=== PATIENT | female | born 1930 | race Caucasian/White ===

== ENCOUNTER 2017-04-04 09:45 | Inpatient (IN) | payer OTHER ==
[~2017-04-04] VITALS: Ht 160 cm; Wt 68.9 kg
[~2017-04-04 09:45] MED LIST: ALPHA LIPOIC A200 M1 PO; ASPIR 8181 MG PO; ASPIRIN EC81 M1; AVAPRO 150 MG150 M1; AVAPRO 150 MG150 M1 PO; BISACODYL SUPP10 MG RE; CLARITIN10 MG PO; COLACE100 MG PO; CYCLOBENZAPRINE10 MG PO; FLOMAX0.4 MG PO; HALCION0.25 MG; HALCION0.25 MG PO; HUMALOG100 UNIT/1; HUMALOG100 UNIT/2 SUBQ; IBUPROFEN 200200 M1 PO; IBUPROFEN 600600 M1 PO; KEFLEX500 MG PO; LIDODERM 5%1 PATC1 TOP; LORATIDINE 10 M10 M1; MELATONIN3 MG PO; MIRALAX255 GM PO; NEURONTIN 300300 M1; NEURONTIN 300300 M1 PO; NEXIUM40 MG; OMEPRAZOLE20 M2 PO; PERCOCET 5-3251 EACH PO; PREDNISONE 20 M20 MG PO; VESICARE10 M1 PO
[2017-04-04 09:47] VITALS: BP 119/47
[2017-04-04] MEDS ORDERED: LORATIDINE 10 M10 M1 PO (09:57)
[2017-04-04] MEDS ORDERED: UNICOMPLEX M TA1 TA1 PO (09:57)
[2017-04-04 10:10] LABS: ABSOLUTE EOSINOPHILS 0.4 thou/uL (0.0-0.7); ABSOLUTE LYMPHOCYTES 0.7 thou/uL (0.8-5.3); ABSOLUTE MONOCYTES 0.8 thou/uL (0.0-1.2); ABSOLUTE NEUTROPHILS 4.2 thou/uL (1.6-8.1); BASOPHILS 0.3 %; EOSINOPHILS 6.2 %; HEMATOCRIT 25.9 % (37.0-47.0); HEMOGLOBIN 8.3 gm/dL (12.0-15.0); LYMPHOCYTES 12.1 %; MCH 23.8 pg (26.0-34.0); MCHC 32.1 g/dL (28.0-37.0); MCV 74.2 fL (80.0-100.0); MONOCYTES 13.7 %; MPV 7.7 fl. (7.2-11.1); NUCLEATED RBCS 0 /100WBC; PLATELET COUNT* 270 thou/uL (150-400); POLYS 67.7 %; RBC 3.49 mil/uL (4.20-5.00); RDW-CV 16.5 % (10.5-14.5); WBC 6.2 thou/uL (4.0-11.0)
[2017-04-04 10:18] LABS: ANION GAP 6 mmol/L (7-16); BUN 19 mg/dL (7-18); CALCIUM 8.1 mg/dL (8.5-10.1); CHLORIDE 102 mmol/L (98-107); CO2 30 mmol/L (21-32); CREATININE 0.9 mg/dL (0.6-1.3); GLUCOSE 50 mg/dL (70-99); POTASSIUM 3.8 mmol/L (3.5-5.1); SODIUM 138 mmol/L (136-145)
[2017-04-04 10:25] LABS: ALBUMIN 3.1 g/dL (3.4-5.0); ALKALINE PHOSPHATASE 97 U/L (46-116); SGOT 16 U/L (15-37); SGPT 18 U/L (30-65); TOTAL BILIRUBIN 0.1 mg/dL (<0.1-1.0); TOTAL PROTEIN 6.1 g/dL (6.4-8.2); TROPONIN-I LEVEL 0.07 ng/mL (<0.06)
[2017-04-04 12:06] LABS: URINE BILIRUBIN NEGATIVE (Negative); URINE BLOOD TRACE (Negative); URINE CLARITY CLEAR; URINE COLOR YELLOW; URINE GLUCOSE-RANDOM NEGATIVE (Negative); URINE KETONES NEGATIVE (Negative); URINE LEUKOCYTES-REFLEX NEGATIVE (Negative); URINE NITRITE-REFLEX NEGATIVE (Negative); URINE PROTEIN NEGATIVE (Negative); URINE SPECIFIC GRAVITY 1.015 (1.005-1.030); URINE UROBILINOGEN 0.2 E.U./dl (0.2-1.0)
[2017-04-04 12:13] LABS: AMP/METHAMP Negative (Negative); BARBITURATES Negative (Negative); BENZODIAZEPINES POSITIVE (Negative); COCAINE Negative (Negative); METHADONE Negative (Negative); OPIATES Negative (Negative); PCP Negative (Negative); THC Negative (Negative)
[2017-04-04 13:50] VITALS: BP 136/84
[2017-04-04 14:30] VITALS: BP 115/51
[2017-04-04 14:31] VITALS: BP 96/38
[2017-04-04 14:32] VITALS: BP 80/55
[2017-04-04 15:17] LABS: % SATURATION 4 % (20-39); IRON 17 ug/dL (50-175)
--- NOTE | 2017-04-04 15:28 | EKG ---
[place] [address] ELECTROCARDIOGRAM REPORT Name: ALEXX PENA Room: [address] M.R.#: [id number] Admission: 04/04/17 Attend Phys: Tevin Howard, Discharge: Date of : 32 Report #: [id number] THIS REPORT FOR: //name// [facility] ED Test Date: 2017-04-04 Test Time: 09:55:23 Pat Name: ALEXX PENA Department: Room: [address] Gender: F Supervisor [employer] Education: : 1930 Requested By: Tevin Howard Order Number: [id number] Reading MD: Felipe Porras Measurements Intervals [employer] Rate: 62 P: 54 MI: 159 QRS: 47 QRSD: 106 T: 27 QT: 433 QTc: 440 Interpretive Statements Sinus rhythm Atrial premature complexes Baseline wander in lead(s) V6 Compared to ECG 02/24/2016 12:13:03 Short MI interval no longer present ST (T wave) deviation no longer present Electronically Signed On 04-04-2017 15:28:07 FACILITY PRACTICE SPECIALIST by Felipe Porras [email or web address] <ELECTRONICALLY SIGNED> By: Felipe Porras MD, FAC 04/04/17 1528 0955 [id number] Felipe Porras MD, [facility] /EPI
--- NOTE | 2017-04-04 15:30 | EKG ---
[place] [address] ELECTROCARDIOGRAM REPORT Name: ALEXX PENA Room: [address] M.R.#: [id number] Admission: 04/04/17 Attend Phys: Tevin Howard, Discharge: Date of : 32 Report #: [id number] THIS REPORT FOR: //name// [facility] ED Test Date: 2017-04-04 Test Time: 13:33:01 Pat Name: ALEXX PENA Department: Room: [facility] Gender: F Weather Anchor: ELSY : 1930 Requested By: Eda Arnett Order Number: [id number] MD: Felipe Porras Measurements Intervals [place] Rate: 73 P: 78 SD: 146 QRS: 67 QRSD: 97 T: 30 QT: 414 QTc: 457 Interpretive Statements Sinus rhythm Probable left ventricular hypertrophy Compared to ECG 02/24/2016 12:13:03 Atrial premature complex(es) no longer present Short SD interval no longer present ST (T wave) deviation no longer present Electronically Signed On 04-04-2017 15:29:57 APARTMENT COMMUNITY ASSISTANT MANAGER by Felipe Porras [email or web address] <ELECTRONICALLY SIGNED> By: Felipe Porras MD, [facility] 04/04/17 1529 1333 1333 Felipe Porras MD, [facility] /EPI
--- NOTE | 2017-04-04 19:08 | NUR ---
RENETTA RESTING IN BED. PARKERNET ADVISED THAT SHE IS NOT TO GET UP WITHOUT ASSISTANCE AND THAT SHE SHOULD PROBABLY REMAIN BEDREST FOR HTE EVENING. ORTHOSTATIC BLOOD PRESSURES OBTAINED AND DOCUMENTED WITH A ORTHOSTATIC HYPOTENSION PRESENT AT TIME OF ASSESSMENT. HOURLY ROUNDING COMPLETED FOR PATIENT SAFETY AND RENETTA IN NOAPPARNET SIGNS OF DISTRESS AT THIS TIME.
[2017-04-04 20:00] VITALS: BP 109/47
[2017-04-05] VITALS (7 sets, daily range): BP systolic 86–178; BP diastolic 27–69
[2017-04-05 05:07] LABS: GLYCOHEMOGLOBIN (HGB A1C) 7.7 % (4.8-5.6)
[2017-04-05 05:09] LABS: HEMATOCRIT 24.9 % (37.0-47.0); HEMOGLOBIN 8.3 gm/dL (12.0-15.0); MCH 24.2 pg (26.0-34.0); MCHC 33.3 g/dL (28.0-37.0); MCV 72.8 fL (80.0-100.0); MPV 9.1 fl. (7.2-11.1); RBC 3.43 mil/uL (4.20-5.00); RDW-CV 16.7 % (10.5-14.5); WBC 10.3 thou/uL (4.0-11.0)
[2017-04-05 05:44] LABS: ALBUMIN 3.1 g/dL (3.4-5.0); CALCIUM 8.6 mg/dL (8.5-10.1); CREATININE 1.1 mg/dL (0.6-1.3); MAGNESIUM 2.1 mg/dL (1.8-2.4); TOTAL BILIRUBIN 0.4 mg/dL (<0.1-1.0)
[2017-04-05 05:53] LABS: POTASSIUM 5.3 mmol/L (3.5-5.1)
[2017-04-05 05:56] LABS: TROPONIN-I LEVEL 1.51 ng/mL (<0.06)
--- NOTE | 2017-04-05 06:11 | NUR ---
ASSUMED CARE OF PT AT 1930, PT AAOX4, NURSING ASSESSMENT COMPLETED AT START OF SHIFT, PT ON TELE MONITOR TRACING SINUS RHYTHM WITH OCCASIONAL PVCS. PT'S BLOOD SUGAR AT 0000 WAS 30, PT GIVEN D50. SEE EMAR FOR DOCUMENTATION. BLOOD SUGAR RECHECKED AT 0030 WAS 177. PT CONTINUED TO TREND UP. AT 0400 PT BLOOD SUGAR WAS 412. DR. PAL NOTIFIED AT 0430, NEW ORDERS RECEIVED TO CONTINUE ACCU CHECKS Q2H X6, IVF. NEW ORDERS RECEIVED FOR ZOFRAN. ADMINISTERED X1 THIS SHIFT FOR EPISODES OF EMESIS X2. AT 0600, GLUCOMETER READ "HIGH ABOVE 500". STAT LAB ORDERS FOR GLUCOSE PLACED. AWAITING LAB RESULTS.
--- NOTE | 2017-04-05 07:59 | NUR ---
STAT LAB GLUCOSE RESULTS RECEIVED AT 0643. PT SERUM GLUCOSE 545. DR. PAL NOTIFIED, NEW ORDERS RECEIVED AND ADMINISTERED. SEE EMAR FOR DOCUMENTATION. PT CONTINUES TO HAVE SOFT BLOOD PRESSURES. DR. PAL NOTIFIED OF LOW BLOOD PRESSURES. PT CONTINUES ON IVF ORDERED BY PROVIDER. HOURLY ROUNDING COMPLETED, Q2H REPOSITIONING COMPLETED, CONTINUES ON TELE MONITOR TRACING SINUS RHYTHM WITH OCCASIONAL PVCS. CALL LIGHT REMAINS WITHIN REACH.
--- NOTE | 2017-04-05 11:47 | 2DMMODE ---
[place] [address] 2 D/M-MODE ECHOCARDIOGRAM Name: ALEXX PENA Room: [address] Colton Hernandez#: [id number] Admission: 04/04/17 Attend Phys: Tevin Woods Discharge: Date of : 32 Date of Service: 04/05/17 1147 Report #: [id number] THIS REPORT FOR: //name// APPROVED REPORT Study performed: 04/04/2017 17:37:24 EXAM: Comprehensive 2D, Doppler, and color-flow Echocardiogram Patient Location: In-Patient Room #: 203 Status: routine BSA: 1.69 HR: 88 bpm BP: 136/84 mmHg Rhythm: NSR Other Information Study Quality: Good Indications Elevated Troponin 2D Dimensions LVEF(%): 79.68 (>50%) IVSd: 9.74 (7-11mm) LVOT Diam: 20.04 (18-24mm) LVDd: 40.84 mm PWd: 7.38 (7-11mm) Ascending Ao: 29.88 (22-36mm) LVDs: 21.31 (25-40mm) Aortic Root: 29.71 mm Juan's LVEF: 79.68 % Volumes Left Atrial Volume (Systole) LA ESV Index: 35.90 mL/m2 Aortic Valve AoV Peak Duong.: 1.77 m/s AO Peak Gr.: 12.53 mmHg LVOT Max P.31 mmHg AO Mean Gr.: 6.98 mmHg LVOT Mean P.80 mmHg LVOT Max V: 1.68 m/s AO V2 VTI: 36.30 cm LVOT Mean V: 1.11 m/s KOSTAS (VTI): 3.37 cm2 LVOT V1 VTI: 38.71 cm Mitral Valve E/A Ratio: 1.13 [place] [address] 2 D/M-MODE ECHOCARDIOGRAM Name: ALEXX PENA Room: [address] Colton Hernandez#: [id number] Admission: 04/04/17 Attend Phys: Tevin Woods Discharge: Date of : 32 Date of Service: 04/05/17 1147 Report #: [id number] MV Decel. Time: 219.63 ms MV E Max Duong.: 1.60 m/s MV PHT: 63.69 ms MVA (PHT): 3.45 cm2 TDI E/Lateral E': 14.55 E/Medial E': 20.00 Medial E' Duong.: 0.08 m/s Lateral E' Duong.: 0.11 m/s Pulmonary Valve PV Peak Duong.: 1.23 m/s PV Peak Gr.: 6.03 mmHg Tricuspid Valve TR Peak Gr.: 42.31 mmHg RVSP: 47.00 mmHg Left Ventricle The left ventricle is normal size. There is normal LV segmental wall motion. There is normal left ventricular wall thickness. Left ventricular systolic function is normal. The left ventricular ejection fraction is within the normal range. LVEF is 65-70%. The left ventricular diastolic function is normal. Right Ventricle The right ventricle is normal size. The right ventricular systolic function is normal. Atria Left atrium is mildly dilated. The right atrium size is normal. Aortic Valve The aortic valve is normal in structure. No aortic regurgitation is present. There is no aortic valvular stenosis. Mitral Valve There is mitral annular calcification. Mild mitral regurgitation. No evidence of mitral valve stenosis. Tricuspid Valve The tricuspid valve is normal in structure. Mild to moderate tricuspid regurgitation. The RVSP is 45-50 mmHg. Pulmonic Valve The pulmonary valve is normal in structure. There is no pulmonic [place] [address] 2 D/M-MODE ECHOCARDIOGRAM Name: ALEXX PENA Room: [address] Colton Hernandez#: [id number] Admission: 04/04/17 Attend Phys: Tevin Woods Discharge: Date of : 32 Date of Service: 04/05/17 1147 Report #: [id number] Great Vessels The aortic root is normal in size. IVC is normal in size and collapses with >50% inspiration Pericardium There is no pericardial effusion. <Conclusion> The left ventricle is normal size. There is normal left ventricular wall thickness. Left ventricular systolic function is normal. The left ventricular ejection fraction is within the normal range. LVEF is 65-70%. The left ventricular diastolic function is normal. The right ventricle is normal size. Left atrium is mildly dilated. The aortic valve is normal in structure. There is mitral annular calcification. Mild mitral regurgitation. No evidence of mitral valve stenosis. The tricuspid valve is normal in structure. Mild to moderate tricuspid regurgitation. The RVSP is 45-50 mmHg. IVC is normal in size and collapses with >50% inspiration There is no pericardial effusion. There is normal LV segmental wall motion. <ELECTRONICALLY SIGNED> By: Pilo Mon MD, FACC 04/05/17 1147 1147 1147 Pilo Mon MD, FACC /INF
--- NOTE | 2017-04-05 17:03 | NUR ---
PATIENT CAME BACK FROM DOCTOR OF RADIOLOGY AT 1545. BEDSIDE REPORT GIVEN. SHE HAS CHRONIC TOTAL OCCLUSION THAT IS UNABLE TO STENT D/T CALCIFICATIONS. THERE ARE ALSO MULTIPLE LESIONS. RIGHT GROIN WAS USED FOR ACCESS AND AN ANGIOSEAL WAS PLACED. PATIENT HAD SOFT BLOOD PRESSURE DURING THE PROCEDURE AND NS WAS GIVEN AT 125. SHE IS TO KEEP THE RIGHT LEG STRAIGHT UNTIL 2029. A LOADING DOSE OF PLAVIX WAS GIVEN AND DAILY DOSING WILL BE 75. THEY WOULD LIKE TO DO A CLEAN OUT NEXTWEEK POSSIBLY OUTPATIENT. REPORT WAS TAKEN FROM [facility].
--- NOTE | 2017-04-05 17:13 | NUR ---
I ASSUMED CARE OF THE PATIENT AT 0700. SHE IS ALERT AND ORIENTED X4. BED IS IN THE LOW LOCKED POSITION AND CALL LIGHT IS IN REACH. BED ALARM IS ON. HOURLY ROUNDING WAS COMPLETED AND PATIENT NEEDS WERE MET. PAIN IS DENIED. FAMILY IS AT THE BEDSIDE MOST OF THE DAY. SUGAR WAS MONITORED EVERY 2 HOURS AND PATIENT'S SUGAR IS UNSTABLE. SHE HAD NO N/V ON MY SHIFT. INIGUEZ TO D/D. SHE WAS TAKEN FOR A CARDIAC CATH AT 1400 AND RETURNED AT 1545. CONSENT WAS SIGNED AND PLACED IN THE CHART. WILL CONTINUE TO MONITOR. NEURO CHECKS WERE ALSO DONE M8MDAPC.
[2017-04-06] VITALS (8 sets, daily range): BP systolic 117–145; BP diastolic 43–63
--- NOTE | 2017-04-06 04:45 | NUR ---
AT 0200, PT'S RIGHT GROIN DRESSING SATURATED WITH BRIGHT RED BLOOD. APPLIED PRESSURE ABOVE INCISION SITE, DR. LOAN STOVALL, RETURNED CALL AT 2037, PT TO REMAIN ON BED REST UNTIL 8 AM, CONTINUE MONITORING FOR BLEEDING, AND HOLD LOVENOX PER DR. CATES. DRESSING CHANGED WHILE APPLYING PRESSURE. NO S/S OF HEMATOMA, ABDOMEN NONTENDER, SOFT, SYMMETRICAL, NO BRUISING OR DISCOLORATION TO PATIENT'S FLANK. PT EDUCATED ON IMPORTANCE OF MANTAINING BEDREST UNTIL 0800. PT VERBALIZED UNDERSTANDING.
[2017-04-06 05:00] LABS: HEMATOCRIT 21.7 % (37.0-47.0); HEMOGLOBIN 7.2 gm/dL (12.0-15.0); MCH 24.1 pg (26.0-34.0); MCHC 32.9 g/dL (28.0-37.0); MCV 73.3 fL (80.0-100.0); MPV 9.2 fl. (7.2-11.1); RBC 2.96 mil/uL (4.20-5.00); RDW-CV 17.1 % (10.5-14.5); WBC 10.2 thou/uL (4.0-11.0)
[2017-04-06 05:08] LABS: ANION GAP 11 mmol/L (7-16); BUN 30 mg/dL (7-18); CALCIUM 7.9 mg/dL (8.5-10.1); CHLORIDE 95 mmol/L (98-107); CHOLESTEROL 137 mg/dL (<200); CO2 23 mmol/L (21-32); CREATININE 1.1 mg/dL (0.6-1.3); GLUCOSE 385 mg/dL (70-99); HDL CHOLESTEROL 48 mg/dL (>40); LDL CHOLESTEROL 82 mg/dL (<100); POTASSIUM 5.1 mmol/L (3.5-5.1); SODIUM 129 mmol/L (136-145); TC:HDL 2.9 Ratio (Not establshd); TRIGLYCERIDE 38 mg/dL (<150); VLDL 8 mg/dL (<40)
[2017-04-06 05:48] LABS: SERUM ASSESSMENT Clear
[2017-04-06 05:49] LABS: TROPONIN-I LEVEL 2.79 ng/mL (<0.06)
--- NOTE | 2017-04-06 07:21 | NUR ---
PT CONTINUES ON BEDREST. ACCU CHECKS COMPLETED Q2H. NOTIFIED DR. LANDA OF BS OF 428 AT 0400. NO NEW ORDERS RECEIVED. BS AT [address] LANDA NOTIFIED AND NEW ORDERS RECEIVED. SEE EMAR FOR DOCUMENTATION. CONTINUES ON Q2H ACCU CHECKS AT THIS TIME. PT DENIES PAIN, DRESSING TO GROIN INTACT, QUARTER SIZE SPOT NOTED WHERE PATIENT OOZED BLOOD. NO HEMATOMA PRESENT. ABDOMEN SOFT, SYMMETRICAL, NONTENDER. CALL LIGHT WITHIN REACH. Q2H TURNS COMPLETED. CONTINUES ON TELE MONITOR TRACING SR. NO CONCERNS VOICED THIS SHIFT.
--- NOTE | 2017-04-06 08:00 | NUR ---
RECEIVED REPORT. ASSUMED CARE OF PT AT 0730. VSS. CARDIAC MONTIORING IN PLACE SA. AM ASSESSMENT AND VITALS COMPLETED CHARTED. PT IS ALERT AND ORIENTED X3. PT FORGETFUL. PT ON 2L PER NC. IVF INFUSING PER ORDERS. PT DENIES ANY COMPLIANTS OF PAIN OR DISCOMFORT. NOTED RED DRIED DRAINAGE THAT IS MARKED AT RIGHT GROIN SITE POST CATH. PT ASSISTED TO SITTING UP POSITION IN BED. NO MORE BLEEDING NOTED AT THIS TIME. PT HAS GEETHA. DISCUSSED POSSIBILITY OF REMOVING THIS TODAY. PT'S FAMILY CONCERNED BECAUSE THEY SAID SHE IS SUPPOSED TO BE BED REST BECAUSE OF HER BLOOD PRESSURE. INFORMED PT AND PT'S FAMILY THAT WE WILL CHECK PT'S ORTHOSTATIC BLOOD PRESSURES BUT WE ALSO WANT TO INCREASE PT'S ACTIVITY THROUGHOUT THE DAY IF POSSIBLE. PT DNEIES ANY COMPLAINTS OF PAIN OR DISCOMFORT. CALL LIGHT IS WITHIN REACH. WILL CONTINUE TO MONITOR FOR DURAITON OF SHIFT.
--- NOTE | 2017-04-06 11:17 | CARD ---
[address] [address] CARDIAC CATH REPORT Name: ALEXX PENA Room: 203-P [facility] IN [facility].#: [id number] Admission: 04/05/17 Attend Phys: Tevin Howard, Discharge: Date of : 31 Report #: [id number] THIS REPORT FOR: //name// APPROVED REPORT Patient Details Patient Status: In-Patient Room #: 203 The patient is a 86 year-old female Event Personnel Pilo Mon Office Secretary, Alia Orozco RN, Rakesh Wilder, Tania Castellanos RN Monitor Procedures Performed Left Heart Catheterization, PTCA with Balloon Angioplasty Hemostasis w/ Angioseal Indication Non-STEMI Risk Factors Hypercholesterolemia, Diabetes Admission/Lab Medications/Medications given during procedure Aspirin, Platelet Aff. Inhib., Angiomax bolus and infusion Procedure Narrative The patient was brought electively to the Cardiac Catheterization Laboratory and was prepped and draped in a sterile manner. The right femoral was infiltrated with 1% Lidocaine subcutaneous anesthesia. A 6Fr. Chama sheath was inserted into the right femoral artery. Coronary angiography was performed using coronary diagnostic catheters. The right coronary system was accessed and visualized with a 3DRC 6fr catheter. The left coronary system was accessed and visualized with a JL4 6Fr catheter. The left ventricle was accessed and visualized with a Diagnostic catheter. Left ventricular/Aortic Valve gradient assessed via catheter pullback. Pre-demployment femoral angiogram was performed . Closure device was deployed with a 8 Fr Angioseal. The patient tolerated the procedure well and there were no complications associated with the procedure. There was no hematoma. Intraoperative Conscious Sedation Sedation start time: 02:12 Case end Time: 03:29 [place] [address] CARDIAC CATH REPORT Name: ALEXX PENA Room: [address] IN [facility]#: [id number] Admission: 04/05/17 Attend Phys: Tevin Howard, Discharge: Date of : 31 Report #: [id number] Fentanyl 25.0 mcg Fluoro Time: 25.2 minutes Dose: 1732 mGy Contrast Type and Amount: Visipaque 170 ml Coronary Angiography The patient's coronary anatomy is right dominant. Diagnostic Cath Left Main 10% mid vessel narrowing LAD 60% ostial with 90% calcified proximal stenosis Circumflex 70% calcified proximal stenosis Right Coronary Dominant vessel with 90% heavily calcified eccentric mid vessel stenosis Hemodynamics The aortic pressure is 95/36 mmHg with a mean of 49 mmHg. The left ventricular pressure is 102/0 mmHg with a mean of mmHg. The left ventricular end diastolic pressure is 12 mmHg. There was no gradient across the aortic valve upon pullback. PCI Technique Lesion Anticoagulation was achieved with Angiomax. Patient was preloaded with Angiomax IV 11.25 ml. Percutaneous coronary intervention was performed on the mid right coronary arterymid right coronary artery. The lesion stenosis prior to intervention was 95% with KAT 3 flow. A 6FR 3DRC SH Guide Catheter was used to engage the Right Coronary ostium. A IG: ProwaterFlex 180CM Interventional Guidewire was used to cross the lesion. BALLOON DILATION A Balloon catheter Mini Trek RX 1.20X12 was inserted and inflated up to 12atm for 15seconds. Final angiography reveals 90 % stenosis with KAT 3 flow. COMMENTS The mid LAD segment was severely calcified. I was able to traverse it with an 014 . prowater flex wire. With the 3 DRC guiding catheter and use of a guideliner, I was unable to achieve adequate support to completely traverse the high-grade calcified stenosis. I did dilate it with a 1.2 x 12 mm trek inflated to 12 humble with minimal alteration [place] [address] CARDIAC CATH REPORT Name: ALEXX PENA Room: [address]#: [id number] Admission: 04/05/17 Attend Phys: Tevin Howard, Discharge: Date of : 31 Report #: [id number] Conclusion #1 severe coronary artery disease characterized by the following: A 10% mid left main coronary artery narrowing, B 60% ostial and 90% calcified proximal LAD stenosis, C 70% calcified proximal circumflex stenosis, this being a nondominant vessel, D dominant right coronary artery with 95% heavily calcified eccentric mid vessel stenosis #2 normal left-sided hemodynamics study #3 percutaneous vessel coronary angioplasty at the site of 95% calcified mid right coronary stenosis with minimal alteration in configuration; there was 90% residual narrowing with KAT-3 flow the distal vessel and no thrombus noted. Recommendations Daily ASA with Plavix for at least one year Aggressive Medical Therapy Medications Administered Aspirin (any) Clopidogrel <ELECTRONICALLY SIGNED> By: Pilo Mon MD, [facility] 04/06/17 1117 1117 1117Pilo Mon MD, FAC /INF
--- NOTE | 2017-04-06 13:12 | EKG ---
[place] [address] ELECTROCARDIOGRAM REPORT Name: ALEXX PENA Room: [address] ADM IN M.R.#: [id number] Admission: 04/05/17 Attend Phys: Tevin Howard, Discharge: Date of : 31 Report #: [id number] THIS REPORT FOR: //name// [facility] Test Date: 2017-04-06 Test Time: 04:15:48 Pat Name: ALEXX PENA Department: Room: [address] Gender: F Tester [employer]: : 1930 Requested By: Pilo Mon Order Number: [id number] Reading MD: Felipe Porras Measurements Intervals [place] Rate: 87 P: 80 IN: 132 QRS: 78 QRSD: 101 T: -8 QT: 384 QTc: 462 Interpretive Statements Sinus rhythm Borderline repol abnormality, diffuse leads Compared to ECG 04/04/2017 13:33:01 No significant changes Electronically Signed On 04-06-2017 13:12:30 CYBER SOFTWARE ENGINEER by Felipe Porras [email or web address] <ELECTRONICALLY SIGNED> By: Felipe Porras MD, [facility] 04/06/17 1312 0415 0415 Felipe Porras MD, [facility] /EPI
--- NOTE | 2017-04-06 16:40 | NUR ---
VSS. CARDIAC MONITORING IN PLACE WITH NO CHANGES THIS SHIFT. PT HAS VERY MINIMAL PROGRESSING TOWARDS GOALS. PT REMAINS ALERT AND ORIETNED X 3-4 WITH FORGETFULNESS. PT IS WEAK AND FATIGUED. PT REPORTS THAT SHE IS "EXHAUSTED." RECHECKED PT'S ORTHOSTATICS THIS AFTERNOON AND WERE NEGATIVE; HOWEVER PT REQUIRED MAXIMUM ASSISTANCE X2 TO SIMPLY STAND AT EDGE OF BED. NOTED PT'S HEMAGLOBIN OF 7.[address] CATES OF PT'S WEAKNESS, TIRED, AND FATIGUE PT HAD ISSUES WITH BLEEDING FROM CATH SITE LAST NIGHT. NO ORDERS RECEIVED. PT HAS HAD NO COMPLAINTS OF PAIN OR DISCOMFORT THIS SHIFT. CALL LIGHT IS WITHIN REACH. WILL CONTINUE TO MOTNIOR FOR DURATION OF SHIFT.
[2017-04-07] VITALS: BP 140/53
[2017-04-07 04:00] VITALS: BP 133/62
[2017-04-07 04:58] LABS: HEMATOCRIT 22.3 % (37.0-47.0); HEMOGLOBIN 7.3 gm/dL (12.0-15.0); MCHC 32.8 g/dL (28.0-37.0); MPV 8.7 fl. (7.2-11.1); RBC 3.06 mil/uL (4.20-5.00); RDW-CV 16.6 % (10.5-14.5); WBC 10.9 thou/uL (4.0-11.0)
[2017-04-07 05:43] LABS: CALCIUM 7.9 mg/dL (8.5-10.1); CREATININE 0.8 mg/dL (0.6-1.3); POTASSIUM 3.9 mmol/L (3.5-5.1)
--- NOTE | 2017-04-07 05:55 | NUR ---
PATIENT ALERT AND ORIENTED X2. NO COMPLAINTS OF PAIN OR DISCOMORT THROUGH SHIFT. SOME BRUISING NOTED TO ABD FROM INJECTIONS. PATIENT ABLE TO TRANSFER TO [facility] COMMODE WITH THE ASSISST OF ONE. IV PATENT. PATIENT REMAINS ON O2 AT 2L.
[2017-04-07 08:02] VITALS: BP 146/67
--- NOTE | 2017-04-07 10:29 | NUR ---
PATIENT CARE ASSUMED AT 0700. PATIENT ASSESSMENT AND VITALS CHARTED. PATIENT SEEMS RESTLESS THIS MORNING, BUT DENIES NEEDS. DENIES ANY CHEST PAIN. RIGHT GROIN SITE HAS BANDAID OVER IT, SOFT WITH NO EVIDENCE OF HEMATOMA. MINIMAL BRUISING TO RIGHT GROIN SITE NOTED. PATIENT UP TO VOID PER COMMODE, NOTED THAT PATIENT HAS DIFFICULTY URINATING AND REPORTS THAT THIS IS NEW. URINE ALSO CLOUDY WITH A FOUL ODOR. UA ORDERED AND TO BE OBTAINED UPON NEXT VOID. TRACING ARRYTHMIA ON WASTE DISPOSAL ATTENDANT. ATE 50% OF BREAKFAST, BUT REPORTS SHE DOESN'T LIKE THE FOOD. PROVIDED WITH MENU AND NOTIFIED THAT IF SHE WOULD LIKE TO ORDER SOMETHING DIFFERENT FOR LUNCH TO NOTIFY NURSING. PATIENT RESTING IN BED AT THIS TIME. SON PRESENT THIS MORNING AND WAS UPDATED ON PLAN OF CARE. DENIES FURTHER NEEDS FROM NURSING AT THIS TIME. GOALS FOR TODAY ARE TO MAINTAIN CARDIAC RYHTHM, MONITOR GROIN SITE, PROMOTE SAFETY AND COMFORT, AND TO INCREASE ACTIVITY WITH PT AND OT.
--- NOTE | 2017-04-07 11:32 | NUR ---
DR. DELCID IN TO SEE PATIENT. FAMILY REPORTS THAT PATIENT "ALWAYS GETS A UTI DURING HOSPITALIZATION". UA TO BE COMPLETED UPON NEXT VOID. PATIENT VERY WEAK. MAY REQUIRE SKILLED PLACEMENT, BUT PATIENT IS A LITTLE RESISTANT. PT AND OT TO WORK WITH PATIENT TO ASSESS. PHYSICIAN ALSO WILL REORDER PATIENT'S HALICON FOR SLEEP, SO WE MAY OBSERVE EFFECTS WHILE IN HOSPITAL.
[2017-04-07 11:35] VITALS: BP 149/68
[2017-04-07 13:04] LABS: URINE BILIRUBIN NEGATIVE (Negative); URINE BLOOD 2+ (Negative); URINE CLARITY CLEAR; URINE COLOR YELLOW; URINE GLUCOSE-RANDOM TRACE (Negative); URINE KETONES 1+ (Negative); URINE LEUKOCYTES 3+ (Negative); URINE NITRITE POSITIVE (Negative); URINE PROTEIN NEGATIVE (Negative); URINE UROBILINOGEN 0.2 E.U./dl (0.2-1.0)
[2017-04-07 13:28] LABS: BACTERIA >30 Many /HPF (None Seen); CASTS None Seen /LPF (None Seen); CRYSTALS None Seen /LPF (None Seen); MUCUS None Seen strn/LPF (None Seen); SQUAMOUS 0-3 Few /LPF (0-3); URINE RBC 3-10 Few /HPF (0-2); URINE WBC >25 Many /HPF (0-5)
[2017-04-07 15:30] VITALS: BP 101/65; BP 149/68
--- NOTE | 2017-04-07 15:35 | NUR ---
CM ASSESSMENT: Pt is A&O. Dtr in room and bedside. Pt resides at home with her dtr and DANY. Pt has been independent with ADLs, Dtr provides stand by assist when Pt is bathing. Pt has a walker that she can use for mobility. Hx of [facility], family would want to use them again if necessary at dc. Hx of [facility]. PT/OT evals ordered. Goal is home at dc, pending PT eval. Following.
--- NOTE | 2017-04-07 17:15 | NUR ---
PATIENT SOMEWHAT PROGRESSING TOWARDS GOALS. NOTED TO BE AOX4 THROUGHOUT SHIFT WITH CRITICAL THINKING ISSUES. PATIENT TAKES EXTRA TIME TO RESPOND. MAKES IMPULSIVE DECISIONS AND CAN BE FORGETFUL. WHEN STAND/PIVOTING TO COMODE PATIENT FORGETS TO TURN AND STATES "WHAT AM I DOING NOW?" UA SENT TODAY FOUL SMELLING, CLOUDY URINE. PATIENT DOES HAVE UTI. PLACED ON DAILY ROCEPHIN WHILE CULTURE IS PENDING. WORKED WITH THERAPY. DENIED CHEST PAIN THROUGHT SHIFT, GROIN SITE REMAINS UNCHANGED. CARDIAC REHAB GAVE EDUCATION TO PATIENT'S DAUGHTER. MAY NEED SKILLED PLACEMENT.
[2017-04-07 20:05] VITALS: BP 136/67
[2017-04-08] VITALS (8 sets, daily range): BP systolic 115–166; BP diastolic 49–68
--- NOTE | 2017-04-08 04:50 | NUR ---
PT IS ABLE TO COMMUNICATE HER NEEDS TO STAFF EFFECTIVELY. SHE HAS DENIED THE NEED FOR PAIN MEDICATION UP TO THIS TIME. RIGHT GROIN CATH SITE IS C/D/I. PT HAS TO URINATE FREQUENTLY; USES BEDSIDE COMODE WITH ASSISTANCE.
--- NOTE | 2017-04-08 09:47 | CON ---
[address] [address] CONSULTATION Name: ALEXX PENA Room: [address] IN [facility].#: [id number] Admission: 04/05/17 Attend Phys: Tevin Howard, Discharge: Date of : 32 Report #: [id number] THIS REPORT FOR: //name// CC: Kenrick Howard DATE OF SERVICE: 04/04/2017 REASON FOR CONSULTATION: Syncope and abnormal troponin. HISTORY OF PRESENT ILLNESS: The patient is an 86-year-old type 1 diabetic who was referred for being found unresponsive at home and presented to the Emergency Department alert, but we are asked to see her because of an abnormal cardiac troponin level initially it was 0.07 on initial presentation and now is 0.49. Clinically, the patient denies chest pain or pressure, but admits to having occasional heartburn. It is centrally located and nonradiating. Telemetry demonstrates a sinus rhythm and her ECG is normal. She has no documented history of heart disease. She denies orthopnea, PND or weight gain. PAST MEDICAL HISTORY: She has been an insulin-requiring diabetic, which apparently is brittle, managed by a store receiving specialist. She has an insulin pump. She has had issues with hypoglycemia and did have a blood sugar of 50 on presentation. She has a history of remote TIA. She has a murmur. Details of this are not otherwise specified. SOCIAL HISTORY: She has no tobacco or ethanol history. She lives with her daughter. PAST SURGICAL HISTORY: Prior hysterectomy and insulin pump placement. FAMILY HISTORY: Positive for FL. REVIEW OF SYSTEMS: CENTRAL NERVOUS SYSTEM: No seizures. Positive weakness. GENERAL: No weight loss or fevers. RESPIRATORY: No cough, sputum production, shortness of breath, wheezing or asthma. CARDIOVASCULAR: Positive chest discomfort, no orthopnea, no PND. ENDOCRINE: [place] [address] CONSULTATION Name: ALEXX PENA Room: [address]#: [id number] Admission: 04/05/17 Attend Phys: Tevin Howard, Discharge: Date of : 32 Report #: [id number] GASTROINTESTINAL: No nausea or vomiting. GENITOURINARY: No dysuria or hematuria. HEMATOLOGIC: No anemia or bleeding disorders. ALLERGIES: No seasonal allergies. Positive medical allergies. PSYCHIATRIC: No depression or anxiety. MUSCULOSKELETAL: No arthritis or connective tissue disease. SKIN: No rashes. EYES: No loss of vision. EARS, NOSE, THROAT AND MOUTH: No decreased hearing, bleeding from nose. MEDICATIONS: Aspirin 325 mg daily, ibuprofen p.r.n., losartan 150 mg daily, triazolam, Humalog and gabapentin 300 mg p.o. t.i.d. PHYSICAL EXAMINATION: VITAL SIGNS: Blood pressure 136/84, heart rate 74 and respiratory rate is 20. GENERAL: This is a pleasant elderly female. She is alert. She is a poor historian. She is in no apparent distress. HEENT: Eyes, EOMs are intact. There is no facial asymmetry. NECK: Supple. No jugular venous distention. Upstrokes are normal. CARDIOVASCULAR: Regular. I cannot hear a rub. There is a systolic murmur grade 2-3/6. LUNGS: Diminished breath sounds. There are no rales. ABDOMEN: Nontender. EXTREMITIES: There is no peripheral edema. PSYCHIATRIC: The patient is alert and oriented. IMAGING: Electrocardiogram demonstrates a sinus rhythm. There are normal ST segments x 2. LABORATORY DATA: Hemoglobin is 8.3, white blood cell count 6.2 and platelet count is 270,000. Sodium is 138, potassium 3.8, chloride is 102, CO2 is 30, BUN is 19 and creatinine is 0.9. CK total is 32. Troponin I 0.49 and initial one was 0.07. CT scan of the brain, cerebral atrophy, possible hydrocephalus and mild white matter microvascular change. No mass or shift. IMPRESSION: 1. Abnormal troponin. This does not seem to be an acute coronary syndrome, but the patient does have numerous cardiovascular risk factors. If this continues to trend upward, she may require an evaluation with a coronary arteriogram, but otherwise I think a pharmacologic nuclear stress test would be helpful in further risk stratification. 2. Atypical chest pain. I am not sure if her symptoms are related to GERD or possible angina. As noted above, a stress test is recommended if she rules out. 3. Anemia. She presents anemic. I will defer further evaluation of this to our hospital colleagues. 4. [place] [address] CONSULTATION Name: ALEXX PENA Room: [address] IN [facility]#: [id number] Admission: 04/05/17 Attend Phys: Tevin Howard, Discharge: Date of : 31 Report #: [id number] 5. Hypoglycemia. She apparently is a brittle diabetic even with an insulin pump. <ELECTRONICALLY SIGNED> By: Felipe Porras MD, FACC 04/08/17 0947 1515 [id number] Porras MD, FACC /nt
--- NOTE | 2017-04-08 15:38 | NUR ---
ASSUMED PT CARE AT 0700 PT IS ALERT AND ORIENTED X 4 PT IS A FALL RISK BED ALARM IS ON, PT HAS FREQUENT URINATION GAVE PYRIDUM PT HAS URINATED LESS FREQUENTLY PT CALLS APPROPRIATELY PT IS UP WITH ASSIST X 1 BEDSIDE COMMODE PT DENIES PAIN OR SOA ON RA PT HAS EPISODES O INCONTIENCE, PT STATES SHE HAS INDIGESTION CALLED DR BHAVIN FERRARO THIS NURSE ORDER FOR TUMS GAVE PT A DOSE OF TUMS, PT BLOOD SUGAR THIS AM WAS 38 GAVE PT JUICE AND GRHRAMCRACKERS WITH PEANUT BUTTER RECHECKED 15 MINUTES BLOOD SUGAR WAS 48 GAVE ANOTHER JUICE RECHECKED 15 MINUTES BLOOD SUGAR ABOVE 60, PT IS SR WITH PACS ON THE MONITOR WILL CONTINUE TO MONITOR
[2017-04-09] VITALS: BP 143/70
--- NOTE | 2017-04-09 00:19 | NUR ---
RECEIEVED REPORT AND ASSUMED CARE OF PATIENT AT 1930. OFFICE MACHINES SALES REPRESENTATIVE IN PLACE TRACING SR PACS. ASSESSMENT AND VITALS COMPLETED CHARTED VSS. PATIENT A&OX4. DENIES PAIN AND DISCOMFORT. PATIENT ON ROOM AIR WITH O2 SATS 93%. PATIENT RESTING COMFORTABLY. UP TO BEDSIDE WITH ASSIST X1. PATIENT STATES SHE HAS STRESS INCONTINENCE. URINE IS ORANGE FROM URINARY MEDICATION. GOAL IS EFFECTIVE BLOOD GLUCOSE CONTROL. CALL LIGHT WITHIN REACH
[2017-04-09 04:00] VITALS: BP 144/59
[2017-04-09 05:26] LABS: HEMATOCRIT 24.3 % (37.0-47.0); MCH 24.2 pg (26.0-34.0); MCHC 33.1 g/dL (28.0-37.0); MCV 73.1 fL (80.0-100.0); MPV 8.4 fl. (7.2-11.1); RBC 3.32 mil/uL (4.20-5.00); RDW-CV 16.9 % (10.5-14.5); WBC 7.4 thou/uL (4.0-11.0)
[2017-04-09 05:39] LABS: CALCIUM 8.6 mg/dL (8.5-10.1); CREATININE 0.7 mg/dL (0.6-1.3); POTASSIUM 3.8 mmol/L (3.5-5.1)
[2017-04-09 09:30] VITALS: BP 156/62
--- NOTE | 2017-04-09 11:26 | NUR ---
Spoke with dtr regarding disposition, dtr requested that referral be sent to [facility]. Spoke with Abigail, they have bed availablility, CM faxed referral.
--- NOTE | 2017-04-09 11:31 | EKG ---
[place] [address] ELECTROCARDIOGRAM REPORT Name: ALEXX PENA Room: [address] ADM IN .R.#: [id number] Admission: 04/05/17 Attend Phys: Tevin Howard, Discharge: Date of : 31 Report #: [id number] THIS REPORT FOR: //name// [facility] Test Date: 2017-04-09 Test Time: 08:31:42 Pat Name: ALEXX PENA Department: Room: [address] Gender: F Wax Ball Molder: : 1930 Requested By: Tevin Howard Order Number: [id number] Stacey MD: Job Conley Measurements Intervals Lares Rate: 81 P: 18 AR: 148 QRS: 75 QRSD: 89 T: 30 QT: 386 QTc: 448 Interpretive Statements Sinus rhythm Consider left ventricular hypertrophy Nonspecific T abnrm, anterolateral leads Compared to ECG 04/06/2017 04:15:48 No significant changes Electronically Signed On 04-09-2017 11:30:45 [employer] by Job Conley [email or web address] <ELECTRONICALLY SIGNED> By: Job Conley MD, [facility] 04/09/17 1130 0 0 Job Conley MD, [facility] /EPI
[2017-04-09 11:41] VITALS: BP 140/58
--- NOTE | 2017-04-09 14:03 | NUR ---
Anticipate dc tomorrow. [facility] able to accept Pt. Following.
[2017-04-09 16:00] VITALS: BP 139/61
--- NOTE | 2017-04-09 18:17 | NUR ---
ASSUMED PT CARE AT 0700 PT IS ALERT AND ORIENTED X 4 PT THIS AM STATES HAVING CHEST PRESSURE WHEN ASSESSING PT SHE STATED IT WAS MORE OF A BURN AND NOT PAIN OBTAINED EKG WHICH WAS SR AND NOTIFIED CARDIOLOGY GAVE PT TUMS REASSESSED PT STATES SHE FEELS BETTER HEARTBURN IS GONE, PT IS UP WITH ASSIST X 1 TO BEDSIDE COMMODE GAVE PT PYRIDUM PT HAS URINATED LESS FREQUENTLY, PT IS SA ON MONITOR, PT IS MORE TIRED DAUGHTER STATES PT HAS NOT SLEPT LAST THREE NIGHTS, PT IS A FALL RISK BED ALARM IS ON, WILL CONTINUE TO MONITOR
[2017-04-09 20:00] VITALS: BP 118/51
[2017-04-10] VITALS: BP 128/44
[2017-04-10 04:00] VITALS: BP 117/47
--- NOTE | 2017-04-10 05:11 | NUR ---
ASSUMED CARE OF PT AT 1930, NURSING ASSESSMENT COMPLETED AT START OF SHIFT, PT VOICED NO CONCERNS, CONTINUES ON TELE MONITOR, TRACING SINUS RHYTHM WITH PACS. DENIES PAIN THIS SHIFT, HOURLY ROUNDING COMPLETED, CALL LIGHT WITHIN REACH.
[2017-04-10 09:30] VITALS: BP 128/49
[2017-04-10 11:58] VITALS: BP 139/60
--- NOTE | 2017-04-10 14:22 | NUR ---
Pt not discharging today, updated Abigail at
[2017-04-10 16:10] VITALS: BP 136/48
--- NOTE | 2017-04-10 18:37 | NUR ---
ASSUMED PT CARE AT 0700 PT DENIES PAIN OR SOA ON RA. PT IS UP WITH ASSIST X 1 TO BEDSIDE COMMODE PT IS A FALL RISK BED ALARM IS ON. PT GIVEN PYRIDUM SIDE EFFECT MAKES URINE ORAANGE PT URINATES FREQUENTLY PT IS SR WITH PACS ON MONITOR PT WAS UPSET THIS AFTERNOON WHEN NURSE GAVE PT INSULIN CONCERNED IT WOULD MAKE HER BLOOD SUGAR TOO LOW THIS NURSE EDUCATED PT ON THE IMPORTANCE OF EATING PT REFUSED INSULIN AT DINNER, PT BEEN SLEEPING THROUGHOUT SHIFT, PT MAY DISCHARGE TO SKILLED FACILITY TOMORROW, WILL CONTINUE TO MONITOR
[2017-04-10 20:00] VITALS: BP 147/58
[2017-04-11] VITALS (9 sets, daily range): BP systolic 114–154; BP diastolic 46–58
--- NOTE | 2017-04-11 05:48 | NUR ---
ASSUMED CARE OF PT AT 1930, NURSING ASSESSMENT COMPLETED AT START OF SHIFT, PT VOICED NO CONCERNS THIS SHIFT, HOURLY ROUNDING COMPLETED, Q2H REPOSITIONING COMPLETED, CONTINUES ON TELE MONITOR TRACING SINUS ARRHYTHMIA. CALL LIGHT WITHIN REACH.
--- NOTE | 2017-04-11 10:16 | NUR ---
ASSUMED CARE OF PT THIS AM AROUND 0715- UPON ASSESSMENT PT NOTED TO BE RESTING IN BED, EYES CLOSED- PT A&O X4, WITH SOME FORGETFULLNESS- CONTINENT OF BOWEL AND BLADDER- LIMITED ASSIST WITH TRANSFERS TO COMMODE-Q 2 HOUR TURNS ENCURAGED WHIL IN BED- LCTA, RESP EVEN AND UN-LABORED- VSS, O2 SAT 94% ON RA- ABDOMEN SOFT/ROUND/NON-TENDER, BS X4 QUADS HYPOACTIVE- LAST BM REPORTED 04/05/17- SCHEDULED MIRALAX AND COLACE GIVEN THIS AM PRESCRIBED- BS MONITORED PRESCRIBED, AM BS NOTED AT 51, PT ASYMPTOMATIC- JUICE X2 GIVEN ISABELLA GORDILLO, BS RECKED AND NOTED TO IMPROVE TO 119- FAIR PO INTAKE NOTED WITH BREAKFAST- IV NOTED TO LEFT FA INTACT, AND SL- IV ABT GIVEN THIS AM PRESCRIBED, NO ADVERSE REACTIONS TO NOTE- PT DENIES ANY C/O PAIN/DISCOMFORT THIS AM- CALL LIGHT AND PERSONAL BELONGINGS WITH IN REACH- HOURLY ROUNDS IN PLACE R/T SAFETY/NEEDS- ALL NEEDS MET AT THIS TIME-WCTM
--- NOTE | 2017-04-11 11:28 | NUR ---
Spoke with Dr Spivey, Pt's blood sugar was low this am, so no dc today. Updated Abigail at and asked if they will have bed availability this weekend for dc. Waiting for call back. Will fax updated therapy notes, if is able to accept over the weekend, so that Abigail can get auth again.
--- NOTE | 2017-04-11 13:14 | NUR ---
Nutrition: Pt seen for LOS over the weekend. Pt's family in room at time of visit. They had concerns about the foods offered here. We discussed Na content. They stated pt is eating well, but the food is too salty. They also stated that pt is diabetic and they are concerned that she is still receiving sugar packets on trays. RD will add a CHO count to her heart healthy diet. Pt has an insulin pump at home, but is concerned she cannot regulate it anymore. Consider Mild risk at this time. Will follow up per protocol.
--- NOTE | 2017-04-11 18:09 | NUR ---
PT CURRENTLY RESTING IN BED- PT NOTED TO HAVE BEEN DOWN GRADED TO MS STATUS THIS SHIFT- IV TO LEFT FA INTACT AND SL- GENTAMYCIN NOTED TO BE D/C'D THIS SHIFT WITH ERYTHROMYCIN OINTMENT ADDED THIS SHFIT R/T REDENED EYES WITH YELLOW DRAINAGE- PT UP IN CHAIR WITH MEALS THIS SHIFT, FAIR PO INTAKE NOTED- WORKING WITH PT/OT INDICATED, TOLERATING WELL- BS MONITORED ORDERED, SSI INDICATED- D/C ON HOLD AT THIS TIME, TO CONTIUE TO MONITOR BS- PT DENIES ANY C/O PAIN/DISCOMFORT AT THIS TIME- CALL LIGHT AND PERSOANL BELONGINGS WITH IN REACH- PT CHECKED ON FREQUENTLY R/T SAFETY/NEEDS- ALL NEEDS MET AT THIS TIME-WCTM
[2017-04-12] VITALS: BP 116/41
--- NOTE | 2017-04-12 06:01 | NUR ---
ASSUMED CARE OF PT AT 1930, NURSING ASSESSMENT COMPLETED AT START OF SHIFT, PT DENIES PAIN THIS SHIFT, C/O HEART BURN, PRN TUMS GIVEN, PT VERBALIZED EFFECTIVE. PT MED SURG STATUS, HOURLY ROUNDING COMPLETED, Q2H REPOSITIONING COMPLETED, CALL LIGHT WITHIN REACH. PT PROGRESSING TOWARDS GOALS.
[2017-04-12 07:57] VITALS: BP 148/58
[2017-04-12 08:00] VITALS: BP 148/58
--- NOTE | 2017-04-12 10:03 | NUR ---
ASSUMED CARE OF PT THIS AM AROUND 0715- UPON ASSESSMENT PT NOTED TO BE RESTING IN BED, EYES CLOSED- PT A&O X4, FORGETULLNESS NOTED- ASSIST X1 WITH TRANSFERS- LCTA, RESP EVEN AND UN-LABORED- VSS, O2 SAT 95% ON RA- DYSPNEA NOTED ON EXERTION- ABDOMEN SOFT/ROUND/NON-TENDER, BS HYPOACTIVE- LAST BM REPORTED X 6 DAYS AGO- SCHEDULED MIRALAX AND COLACE GIVEN THIS AM PRESCRIBED- +1 BLE EDEME NOTED, LEG ELEVATION ENCOURAGED AT REST- BS MONITORED ORDERED, SSI INSULIN GIVEN PRESCRIBED- AM BS NOTED AT 444, DR DELCID NOTIFIED WITH SSI INCREASED- FAIR PO INTAKE NOTED THIS AM WITH BREAKFAST- PT DENIES ANY C/O PAIN/DISCOMFORT AT THIS TIME- CALL LIGHT AND PERSONAL BELONGINGS WITH IN REACH- HOURLY ROUNDS IN PLACE R/T SAFETY/NEEDS- ALL NEEDS MET AT THIS TIME-WCTM
[2017-04-12] MEDS ORDERED: ATORVASTATIN CA40 MG PO (11:21)
[2017-04-12] MEDS ORDERED: CLOPIDOGREL75 MG PO (11:21)
[2017-04-12] MEDS ORDERED: LOPRESSOR25 PO (11:21)
[2017-04-12] MEDS ORDERED: FERREX 150 PLU1 EAC1 PO (11:21)
[2017-04-12] MEDS ORDERED: RANEXA500 MG PO (11:21)
[2017-04-12] MEDS ORDERED: ERYTHROMYCIN E3.5 G2 OPHTHALMIC (11:23)
--- NOTE | 2017-04-12 11:39 | NUR ---
Pt discharging to [facility] today, faxed dc orders. Facility will cook pickled meat at 3pm. Chart copied. Nurse report number provided, . Updated dtr in room.
[2017-04-12 12:29] VITALS: BP 111/44
--- NOTE | 2017-04-12 15:01 | NUR ---
ORDERS RECIVED THIS SHIFT FOR [facility] TO D/C TO SKILLED UNIT THIS SHIFT- CM HERE TO SET UP WITH PLANS FOR TRANSFER VIA W/C VAN TO [facility], WITH [facility] UP TIME OF 1500- D/C TEACHING/EDUCATION GIVEN TO PT AND JOSHER AT TIME OF D/C- WRITTEN EDUCATION GIVEN TO DAUGHTER AT TIME OF D/C- ALL QUESTIONS AND NCONCERNS ADDRESSED PRIOR TO D/C- IV TO LEFT FA D/C PRIOR TO D/C- REPORT CALLED TO PAULY FAUSTIN AT [facility] AT 1535- ALL QUESTIONS AND CONCEERNS ADDRESSED- COMMUNICATION GIVEN TO ROXIE R/T HIGH BS AND RECENT INCREASE IN SSI, AND NEED TO MONITOR CLOSELY- BELONGINGS PACKED AND ACCOUNTED FOR PER PT DAUGHTER- PT CURRENTLY DRESSED AND UP IN BED SIDE CHAIR AWAITTING TRANSPORTATION- CALL LIGHT AND PERSONAL BELONGINGS WITH IN REACH-ALL NEEDS MET AT THIS TIME-[facility]
== END 2017-04-12 15:10 | DRG 250 ==
LOC: M.ERS 09:45 → M.TBA-ER 11:19 → M.2W 14:09
PROVIDERS: Internal Medicine; Personal Emergency Response Attendant; ADMIT Family Medicine
PROC: 02703ZZ Dilation of Coronary Artery, One Artery, Percutaneous Approach (ICD-10-PCS; principal; 2017-04-06)
PROC: B211YZZ Fluoroscopy of Multiple Coronary Arteries using Other Contrast (ICD-10-PCS; principal; 2017-04-06)
PROC: 4A023N7 Measurement of Cardiac Sampling and Pressure, Left Heart, Percutaneous Approach (ICD-10-PCS; principal; 2017-04-06)
DX: I21.4 Non-ST elevation (NSTEMI) myocardial infarction (principal); G93.41 Metabolic encephalopathy; G91.9 Hydrocephalus, unspecified; N39.0 Urinary tract infection, site not specified; E11.65 Type 2 diabetes mellitus with hyperglycemia; H10.9 Unspecified conjunctivitis; G47.00 Insomnia, unspecified; D50.9 Iron deficiency anemia, unspecified; G93.89 Other specified disorders of brain; E11.649 Type 2 diabetes mellitus with hypoglycemia without coma; K21.9 Gastro-esophageal reflux disease without esophagitis; Z79.4 Long term (current) use of insulin; Z90.710 Acquired absence of both cervix and uterus; Z87.442 Personal history of urinary calculi; Z88.6 Allergy status to analgesic agent; Z88.1 Allergy status to other antibiotic agents; Z88.2 Allergy status to sulfonamides; Z88.8 Allergy status to other drugs, medicaments and biological substances; Z82.49 Family history of ischemic heart disease and other diseases of the circulatory system; Z79.899 Other long term (current) drug therapy; Z79.82 Long term (current) use of aspirin